=== PATIENT | female | born 1970 | race African-American/Black ===

== ENCOUNTER 2017-04-02 17:47 | Emergency (ER) | payer SELFPAY ==
[~2017-04-02] VITALS: Ht 172.7 cm; Wt 137.2 kg
[~2017-04-02 17:47] MED LIST: CYCL-405 PO
[2017-04-02 17:51] VITALS: BP 132/70
--- NOTE | 2017-04-02 18:30 | NUR ---
46/F C/O LEFT 1ST TOE INGROWN NAIL X2 DAYS. STS WORSE TODAY WITH SWELLING, REDNESS, YELLOW PURULENT DRAINAGE NOTED. HX DM. RX JANUVIA AND GLIPIZIDE.
--- NOTE | 2017-04-02 18:35 | NUR ---
Patient being evaluated by physician at bedside.
[2017-04-02] MEDS ORDERED: HYDROcodone/APAP 10/325 MG 1 TAB TAB PO PRN (18:40)
--- NOTE | 2017-04-02 18:51 | NUR ---
PATIENT MEDICATED FOR LT. TOE PAIN
--- NOTE | 2017-04-02 19:05 | NUR ---
Patient discharged with v/s stable. Written and verbal after care instructions given and explained. Patient alert, oriented and verbalized understanding of instructions. Ambulatory with steady gait. All questions addressed prior to discharge. ID band removed. Patient advised to follow up with PMD. Rx of BACTRIM DS AND NORCO given. Patient educated on indication of medication including possible reaction and side effects. Opportunity to ask questions provided and answered.
[2017-04-02 19:33] VITALS: BP 130/71
== END 2017-04-02 19:05 | disposition home or self-care (01) ==
LOC: MED 17:47
DX: L03.032 Cellulitis of left toe (principal); R03.0 Elevated blood-pressure reading, without diagnosis of hypertension; E11.9 Type 2 diabetes mellitus without complications; Z79.899 Other long term (current) drug therapy
CPT/HCPCS: 99283

== ENCOUNTER 2017-11-29 15:52 | Emergency (ER) | payer MEDICAID ==
[~2017-11-29] VITALS: Ht 175.3 cm; Wt 136.6 kg
[2017-11-29 16:08] VITALS: BP 153/73
--- NOTE | 2017-11-29 16:20 | NUR ---
PT TAKEN TO BED 8.
--- NOTE | 2017-11-29 16:30 | NUR ---
47/F PRESENTS TO ED WITH C/O LOWER BACK PAIN X4 DAYS, HX DM. DENIES N/V/D; SKIN IS PINK/WARM/DRY; AAOX4 WITH EVEN AND STEADY GAIT; LUNGS CLEAR BL; HR EVEN AND REGULAR; PT DENIES ANY FEVER, CP, SOB, OR COUGH AT THIS TIME; PATIENT STATES PAIN OF 8/10 AT THIS TIME; VSS; PATIENT POSITIONED FOR COMFORT; HOB ELEVATED; BEDRAILS UP X2; BED DOWN. ER MD MADE AWARE OF PT STATUS.
[2017-11-29] MEDS ORDERED: DIAZEPAM 5 MG TAB PO ONE (17:30)
[2017-11-29] MEDS ORDERED: KETOROLAC 30 MG/ML VIAL IM ONE (17:30)
[2017-11-29 18:57] VITALS: BP 153/73
--- NOTE | 2017-11-29 19:06 | NUR ---
Patient discharged with v/s stable. Written and verbal after care instructions given and explained. Patient alert, oriented and verbalized understanding of instructions. Ambulatory with steady gait. All questions addressed prior to discharge. ID band removed. Patient advised to follow up with PMD. Rx of NAPROSYN, LIDODERM, VALIUM given. Patient educated on indication of medication including possible reaction and side effects. Opportunity to ask questions provided and answered.
== END 2017-11-29 19:06 | disposition home or self-care (01) ==
LOC: MED 15:52
DX: S39.012A Strain of muscle, fascia and tendon of lower back, initial encounter (principal); E11.9 Type 2 diabetes mellitus without complications; Z79.899 Other long term (current) drug therapy; X58.XXXA Exposure to other specified factors, initial encounter; Y93.89 Activity, other specified; Y92.89 Other specified places as the place of occurrence of the external cause; Y99.8 Other external cause status
CPT/HCPCS: 72100; 81002; 81025; 96372; 99284; J1885; Q0092

== ENCOUNTER 2018-12-05 16:33 | Emergency (ER) | payer MEDICAID ==
[~2018-12-05] VITALS: Ht 175.3 cm; Wt 159.2 kg
[2018-12-05 16:40] VITALS: BP 180/96
--- NOTE | 2018-12-05 16:48 | NUR ---
PT AMBULATED TO BED 09.
--- NOTE | 2018-12-05 17:17 | NUR ---
C/O BLE EDEMA, FATIGUE X 2 WKS DENIES SOB, DENIES CP, DENIES GRAY FULL CLEAR SPEECH, NO ACCESSORY MUSCLE USE NOTED
--- NOTE | 2018-12-05 17:20 | NUR ---
ENCOURAGED PT TO PROVIDE URINE SAMPLE--CUP OF WATER HANDED TO PT ALONG WITH URINE CUP FOR SAMPLE---LABS BEING DRAWN AT THIS TIME
[2018-12-05 17:28] LABS: BASOPHILS % (AUTO) 0.4 % (0.0-2.0); EOSINOPHILS # (AUTO) 0.2 K/uL (0-0.4); EOSINOPHILS % (AUTO) 2.1 % (0.0-4.0); HEMATOCRIT 35.8 % (36-48); HEMOGLOBIN 11.4 g/dL (12.0-16.0); LYMPHOCYTES # (AUTO) 2.2 K/uL (2.5-16.5); LYMPHOCYTES % (AUTO) 29.7 % (20.5-51.1); MEAN CORPUSCULAR HEMOGLOBIN 24 pg (27-31); MEAN CORPUSCULAR HGB CONC 32 g/dL (33-37); MEAN CORPUSCULAR VOLUME 75.5 fL (80-94); MONOCYTES # (AUTO) 0.5 K/uL (0.8-1.0); MONOCYTES % (AUTO) 6.1 % (1.7-9.3); NEUTROPHILS # (AUTO) 4.6 K/uL (1.8-7.7); NEUTROPHILS % (AUTO) 61.7 % (42.2-75.2); PLATELET COUNT (AUTO) 286 K/uL (140-450); RED BLOOD CELL COUNT(AUTO) 4.75 MIL/uL (4.20-5.40); RED CELL DISTRIBUTION WIDTH 16.4 % (11.6-13.7); WHITE BLOOD COUNT (AUTO) 7.5 K/uL (4.8-10.8)
[2018-12-05 17:43] LABS: ANION GAP 7.8 (8-16); CARBON DIOXIDE 31.3 mmol/L (21-32); CREATININE 0.8 mg/dL (0.6-1.3); POTASSIUM 4.1 mmol/L (3.5-5.1)
[2018-12-05 17:51] LABS: TOTAL BILIRUBIN 0.3 mg/dL (0.0-1.0)
[2018-12-05 18:38] VITALS: BP 164/81
== END 2018-12-05 18:44 | disposition home or self-care (01) ==
LOC: MED 16:33
DX: R60.0 Localized edema (principal); E11.9 Type 2 diabetes mellitus without complications; Z79.899 Other long term (current) drug therapy
CPT/HCPCS: 36415; 80053; 82948; 83880; 85025; 93005; 99284